=== PATIENT | male | born 1965 | race Caucasian/White ===

== ENCOUNTER 2017-10-25 07:11 | Emergency (ER) | payer MEDICAID ==
[2017-10-25 07:19] VITALS: BP 118/77; PULSE 71; TEMP 98.8; O2SAT 100
--- NOTE | 2017-10-25 07:58 | C.PDOC ---
History Of Present Illness 52 y/o M c no PMHx p/w nonproductive cough x 2 days. Denies fever, chills, nausea, vomiting, chest pain, dyspnea, abdominal pain, diarrhea, constipation. Took Aleve with minimal relief. Time Seen by Provider: 10/25/17 07:48 Chief Complaint (Nursing): Cough, Cold, Congestion Past Medical History Vital Signs: Last Vital Signs Temp 98.8 F 10/25/17 07:18 Pulse 71 10/25/17 07:18 Resp 16 10/25/17 07:18 BP 118/77 10/25/17 07:18 Pulse Ox 100 10/25/17 07:18 Family History: States: Unknown Family Hx - Social History Hx Tobacco Use: Yes Hx Alcohol Use: Yes Hx Substance Use: No - Immunization History Hx Tetanus Toxoid Vaccination: No Hx Influenza Vaccination: No Hx Pneumococcal Vaccination: No Review Of Systems Except As Marked, All Systems Reviewed And Found Negative. Constitutional: Negative for: Fever Cardiovascular: Negative for: Chest Pain Physical Exam - Physical Exam Additional Physical Exam Comments: Gen: NAD Head: NC/AT Eyes: PERRL ENT: No swelling or exudates. Neck: No nuchal rigidity Chest: No tenderness CV: Regular rate Lungs: CTA b/l Abd: Soft, NT Back: No CVA tenderness Ext: No swelling Neuro: Alert, no focal deficit ED Course And Treatment O2 Sat by Pulse Oximetry: 100 Medical Decision Making Medical Decision Making: Impression: 52 y/o M p/w sore throat, cough with no vital sign abnormalities and clear lungs on auscultation. 0 Centor critiera. Consistent with viral URI. Plan: OTC analgesia. Robitussin. Lozenges. Mucinex. F/u primary care, instructed to return to ED for worsening pain, fever, dyspnea, vomiting. Disposition - Disposition Disposition: HOME/ ROUTINE Disposition Time: 07:58 Condition: STABLE Prescriptions: Benzonatate [Tessalon Perles] 200 mg PO TID #30 sgl Guaifenesin [Mucus-ER Max] 1,200 mg PO BID #18 tab.er.12h Ibuprofen [Motrin] 600 mg PO Q6 #25 tab Instructions: Upper Respiratory Infection (ED) - Clinical Impression Clinical Impression: Upper respiratory infection
[2017-10-25 08:12] VITALS: RESP 18
== END 2017-10-25 08:05 | disposition home or self-care (01) ==
LOC: C.ER 07:11
DX: J06.9 Acute upper respiratory infection, unspecified (principal); F17.210 Nicotine dependence, cigarettes, uncomplicated